=== PATIENT | female | born 1960 | race Caucasian/White ===

== ENCOUNTER 2017-02-25 07:42 | Emergency (ER) | payer OTHER ==
[~2017-02-25] VITALS: Ht 256.5 cm; Wt 62.6 kg
--- NOTE | ~2017-02-25 | EKG ---
PATIENT: BRIAN VALDEZ UNIT #: [id number] Ventricular Rate: 65 BPM Atrial Rate: 65 BPM P-R Interval: 84 ms QRS Duration: 90 ms Q-T Interval: 394 ms QTC Calculation(Bezet): 409 ms P Larimore: 36 degrees Calculated R Larimore: 79 degrees Calculated T Larimore: 68 degrees Diagnosis Line: Sinus rhythm with short SD Diagnosis Line: Otherwise normal ECG Diagnosis Line: No previous ECGs available Diagnosis Line: Confirmed by MARI MEJIA MD ([id number]) on 02/25/2017 Diagnosis Line: 5:51:12 PM INTERPRETING MD: ROBERTO MONTALVO
--- NOTE | ~2017-02-25 | CT16 ---
[facility] A Service of [facility] & [facility] RADIOLOGY TEXT RESULTS PATIENT: BRIAN VALDEZ LOCATION: [facility] : 60 UNIT #: [id number] AGE: [address]: Leilani Fisher MD SEX: F ORDER DR: [id number] [facility] [address] [place], [place] [address] [id number] MR#: [id number] Acc #: [id number] NAME: BRIAN VALDEZ : 1960 SEX: F STUDY DATE/TIME: 02/25/2017 10:16 UNIT: [facility] ROOM: STUDY DESCRIPTION: CT Angio Chest for PE Attending Physician: Leilani Fisher M.D. Ordering Physician: Leilani Fisher M.D. Primary Care Physician: Steve Canseco M.D. MEDICAL IMAGING REPORT This report is preliminary unless electronic signature is present EXAM CT angiogram of the chest with PE protocol 02/25/2017 1016 hours HISTORY 56-year-old woman complaining of acute onset of stabbing left-sided chest pain this morning. Pain is worse with movement and deep inspiration. COMPARISON 11/21/[address] images were obtained from the thoracic inlet through the adrenal glands. 3-D sagittal and coronal reconstructions were performed. Contrast was Isovue-370, 80 mL IV. Total exam DLP 397 mGy-cm. This CT exam was performed with one or more of the following radiation dose reduction techniques: Automatic exposure control, adjustment of mA and/or kV according to patient size, and iterative reconstruction. FINDINGS Images through the thoracic inlet demonstrate no thyroid mass or adenopathy. Images through the chest demonstrate excellent opacification of the pulmonary arteries, which are within normal limits for caliber. There are no filling defects to suggest the presence of pulmonary emboli. Aorta is within normal limits. The cardiac chambers, pericardium are normal. The esophagus is normal. There is no pathologic adenopathy. Lung window images demonstrate underlying emphysematous change with small blebs at both apices. There is no evidence of pneumonia, edema or pulmonary nodule. No bronchiectasis or pleural effusion. STS. [facility] A Service of [facility] & [facility] RADIOLOGY TEXT RESULTS PATIENT: BRI[facility] VAL[id number] 60 UNIT #: [id number] AGE: [address]: Leilani Fisher MD SEX: F ORDER DR: Bone window images demonstrate no fractures or rib lesions. There is mild multilevel endplate spurring, with a few Schmorl nodes in the thoracic spine. IMPRESSION 1. No evidence of pulmonary embolism. Normal caliber aorta. 2. The lungs are clear with no pleural effusion, pneumothorax or rib lesion. 3. Mild to moderate endplate spurring and a few Schmorl nodes in the thoracic spine. No compression fracture. Dictated by... Julia Patel M.D. THIS IS AN ELECTRONICALLY VERIFIED REPORT Julia Patel M.D. at 02/25/2017 2:31 PM KORIN/trever TD: 02/25/2017 11:51 JOB #: [id number] MEDICAL IMAGING REPORT Page 1 of 1 COPY
[~2017-02-25 07:42] MED LIST: ATIVAN PO; CELEXA20 MG PO; CYMBALTA PO; LODINE XL PO; PANCREASE PO; PERCOCET5/325 PO; PREDNISONE10 MG PO; VESICARE PO
[2017-02-25 08:40] LABS: BASOPHIL# 0.1 X10e3 (0-0.3); EOSINOPHIL% 0.6 % (0.0-7.0); HEMATOCRIT 44.2 % (35.0-45.0); HEMOGLOBIN 15.2 gm/dL (12.0-16.0); LYMPHOCYTE# 1.5 X10e3 (1.0-3.5); MEAN CELL VOLUME 87.1 FL (83-96); MEAN CORPUSCULAR HGB CONC 34.4 g/dL (30-36); MEAN PLATELET VOLUME 10.4 FL (6.5-11.5); MONOCYTE# 0.3 X10e3 (0-1.0); MONOCYTE% 4.2 % (3.0-12.0); NEUTROPHIL# 5.7 X10e3 (1.5-7.1); NEUTROPHIL% 74.2 % (40-75); PLATELET COUNT 225 X10e3 (140-420); RED BLOOD COUNT 5.07 X10e (3.90-5.30); RED CELL DISTRIBUTION WIDTH 13.5 % (11.0-15.5); WHITE BLOOD COUNT 7.6 X10e3 (4.0-10.5)
[2017-02-25 08:41] LABS: DIFF IND NO
[2017-02-25 08:51] LABS: POC - TROPONIN <0.05 ng/mL (<=0.05)
[2017-02-25 09:03] LABS: ALBUMIN SERUM 4.2 g/dL (3.5-5.0); BILIRUBIN, DIRECT 0.1 mg/dL (0.0-0.2); BILIRUBIN,TOTAL 0.1 mg/dL (0.2-2.0); CALCIUM SERUM 9.2 mg/dL (8.4-10.2); CREATININE SERUM 0.9 mg/dL (0.6-1.4); GLOM FILT RATE Estimated 71.5 mL/min (>60); POTASSIUM 3.7 mmol/L (3.5-5.1); PROTEIN TOTAL SERUM 7.5 g/dL (6.0-8.3)
[2017-02-25 09:15] LABS: URINE SOURCE CLEAN CATCH
[2017-02-25 09:33] LABS: URINE APPEARANCE CLEAR; URINE BILIRUBIN NEG (NEG); URINE BLOOD NEG (NEG); URINE COLOR YELLOW; URINE GLUCOSE NEG (NEG); URINE KETONE NEG (NEG); URINE LEUKOCYTE ESTERASE NEG (NEG); URINE NITRATE NEG (NEG); URINE PROTEIN NEG (NEG); URINE SPECIFIC GRAVITY 1.003 (1.003-1.035); URINE UROBILINOGEN 0.2 MG/DL (NEG)
[2017-02-25 09:38] LABS: CULTURE INDICATED? NO
== END 2017-02-25 11:20 | disposition home or self-care (01) ==
LOC: CED 07:42
PROVIDERS: Nurse Practitioner; Student in an Organized Health Care Education/Training Program
DX: R10.12 Left upper quadrant pain (principal); R11.0 Nausea; R19.7 Diarrhea, unspecified; R07.9 Chest pain, unspecified; M54.6 Pain in thoracic spine; K21.9 Gastro-esophageal reflux disease without esophagitis; F41.9 Anxiety disorder, unspecified; F17.200 Nicotine dependence, unspecified, uncomplicated; Z88.0 Allergy status to penicillin; Z79.899 Other long term (current) drug therapy
CPT/HCPCS: 36415; 71275; 80048; 80076; 81003; 82150; 82553; 83690; 84484; 85025; 85379; 93005; 96361; 96374; 96375; 99284; J1170; J2405; Q9967